=== PATIENT | male | born 1940 | race Two or more races ===

== ENCOUNTER 2017-03-10 08:49 | Outpatient (CLI) | payer OTHER ==
[~2017-03-10 08:49] MED LIST: GLIMEPIRIDE4 MG; GLUCOPHAGE XR500 MG; METFORMIN HCL1000 MG
== END 2017-03-10 08:56 | disposition home or self-care (01) ==
LOC: LAB 08:49
DX: D64.89 Other specified anemias (principal); E55.9 Vitamin D deficiency, unspecified; E11.42 Type 2 diabetes mellitus with diabetic polyneuropathy; E78.2 Mixed hyperlipidemia; E11.21 Type 2 diabetes mellitus with diabetic nephropathy; E03.8 Other specified hypothyroidism

== ENCOUNTER 2017-08-15 10:27 | Outpatient (CLI) | payer OTHER | END 2017-08-15 10:34 | disposition home or self-care (01) | LOC: RAD 10:27 | DX: M77.32 Calcaneal spur, left foot (principal) ==

== ENCOUNTER → 2017-08-28 | Outpatient (CLI) | payer OTHER | END | disposition home or self-care (01) | LOC: NUCLEAR 10:00 | DX: M77.32 Calcaneal spur, left foot (principal); M81.0 Age-related osteoporosis without current pathological fracture ==

== ENCOUNTER 2018-02-10 08:12 | Outpatient (CLI) | payer OTHER | END 2018-02-10 15:00 | disposition home or self-care (01) | LOC: LAB 08:12 | DX: E11.22 Type 2 diabetes mellitus with diabetic chronic kidney disease (principal); N18.3 Chronic kidney disease, stage 3 (moderate); R80.9 Proteinuria, unspecified; E21.2 Other hyperparathyroidism ==

== ENCOUNTER 2018-02-10 10:02 | Outpatient (CLI) | payer OTHER | END 2018-02-10 10:05 | disposition home or self-care (01) | LOC: SONOGRAMA 10:02 | DX: N18.9 Chronic kidney disease, unspecified (principal); E11.9 Type 2 diabetes mellitus without complications; Z85.46 Personal history of malignant neoplasm of prostate ==

== ENCOUNTER 2018-04-30 09:52 | Outpatient (CLI) | payer OTHER | END 2018-04-30 11:58 | disposition HB | LOC: LAB 09:52 | DX: E11.22 Type 2 diabetes mellitus with diabetic chronic kidney disease (principal); N18.3 Chronic kidney disease, stage 3 (moderate); I10 Essential (primary) hypertension; N39.0 Urinary tract infection, site not specified ==

== ENCOUNTER 2020-02-16 09:56 | Outpatient (CLI) | payer OTHER | END 2020-02-16 10:07 | disposition HB | LOC: RAD 09:56 | DX: I77.89 Other specified disorders of arteries and arterioles (principal) ==

== ENCOUNTER 2023-09-29 10:14 | Outpatient (CLI) | payer OTHER | END 2023-09-29 10:22 | disposition home or self-care (01) | LOC: RAD 10:14 | DX: I12.9 Hypertensive chronic kidney disease with stage 1 through stage 4 chronic kidney disease, or unspecified chronic kidney disease (principal) ==

== ENCOUNTER 2024-04-15 09:12 | Inpatient (IN) | payer OTHER ==
[~2024-04-15] VITALS: Ht 264.2 cm; Wt 72.6 kg
[2024-04-15] MEDS ORDERED: DEXTROSE 5 % IN WATER 500 ML IV SCH (09:30)
[2024-04-15 10:19] LABS: PH,URINE 5.5 (5.0-8.0); URINE APPEARANCE Clear; URINE BILIRRUBIN Negative (NEGATIVE); URINE BLOOD Trace; URINE COLOR Yellow; URINE GLUCOSE Negative (NEGATIVE); URINE KETONE Negative (NEGATIVE); URINE LEUKOCYTE Negative; URINE NITRATE Negative; URINE UROBILINOGEN 0.2 E.U./dl
[2024-04-15 10:20] LABS: URINE BACTERIA 89.3 uL (0.0-1933); URINE EPITHELIAL CELLS 2.9 uL (0.0-38.8); URINE RBC 6.1 uL (0.0-20.8); URINE WBC 2.6 uL (0.0-23.2)
[2024-04-15 10:26] LABS: URINE CAST 0.29 uL (0.0-1.40); URINE PROTEIN 100 (NEGATIVE)
[2024-04-15 11:08] LABS: HEMATOCRIT 34.3 % (39.0-48.0); HEMOGLOBIN 10.8 g/dL (13-16.00); MEAN CELL VOLUME 72.9 fL (80.0-100.00); MEAN CORPUSCULAR HEMOGLOBIN 22.9 pg (27.00-32.0); MEAN CORPUSCULAR HGB CONC 31.4 g/dl (32.0-36.0); PLATELET COUNT 265 K/uL (150-450); RED BLOOD COUNT 4.71 M/uL (4.00-6.00); RED CELL DISTRIBUTION WIDTH 16.9 % (11.5-14.5)
[2024-04-15 11:20] LABS: CALCIUM 9.5 mg/dL (8.5-10.1); CREATININE SERUM 1.5 mg/dL (0.70-1.30); GFR 44.69; POTASSIUM 4.43 mEq/L (3.5-5.1)
[2024-04-15] MEDS ORDERED: DEXTROSE 50 % IN WATER 0.5 G/ML DISP.SYRIN IV ONE (14:10)
[2024-04-15] MEDS ORDERED: 0.9 % SODIUM CHLORIDE 1,000 ML IV SCH (18:45)
[2024-04-15] MEDS ORDERED: ATORVASTATIN CALCIUM 40 MG TABLET PO SCH (18:47)
[2024-04-15] MEDS ORDERED: CEFTRIAXONE SODIUM 2,000 MG in 0.9 % SODIUM CHLORIDE 100 ML IV SCH (18:47)
[2024-04-15] MEDS ORDERED: ASPIRIN 81 MG TAB.CHEW PO SCH (18:47)
[2024-04-15] MEDS ORDERED: GABAPENTIN 600 MG TABLET PO SCH (18:48)
[2024-04-15] MEDS ORDERED: DEXTROSE 50 % IN WATER 0.5 G/ML DISP.SYRIN IV PRN (19:00)
[2024-04-15] MEDS ORDERED: INSULIN LISPRO 1,000 UNIT/10 ML UNITS SUBCUTANEO PRN (19:00)
[2024-04-15] MEDS ORDERED: CEFTRIAXONE SODIUM 2,000 MG VIAL ONE (19:25)
[2024-04-15 20:28] LABS: INR 0.94; PARTIAL THROMBOPLASTIN TIME 24.7 SECONDS (22.0-34.0); PROTHROMBIN TIME 10.3 SECONDS (9.0-11.5)
[2024-04-15 21:51] LABS: PH,URINE 6.5 (5.0-8.0); URINE APPEARANCE Clear; URINE BILIRRUBIN Negative (NEGATIVE); URINE BLOOD Small; URINE COLOR Yellow; URINE GLUCOSE Negative (NEGATIVE); URINE KETONE Negative (NEGATIVE); URINE LEUKOCYTE Negative; URINE NITRATE Negative; URINE RBC 7.5 uL (0.0-20.8)
[2024-04-15 22:00] LABS: URINE EPITHELIAL CELLS 0.1 uL (0.0-38.8); URINE PROTEIN 100 (NEGATIVE); URINE WBC 0.3 uL (0.0-23.2)
[2024-04-15 23:59] VITALS: BP 160/70; O2SAT 100
[2024-04-16] VITALS (7 sets, daily range): BP systolic 150–195; BP diastolic 70–90; O2SAT 19–100
[2024-04-16] MEDS ORDERED: DEXAMETHASONE SODIUM PHOSPHATE 4 MG/ML VIAL IV SCH
[2024-04-16] MEDS ORDERED: INSULIN LISPRO 1,000 UNIT/10 ML UNITS SUBCUTANEO ONE (04:02)
[2024-04-16] MEDS ORDERED: INSULIN LISPRO 1,000 UNIT/10 ML UNITS SUBCUTANEO PRN (08:00)
[2024-04-16] MEDS ORDERED: LOSARTAN POTASSIUM 100 MG TABLET PO SCH (09:00)
[2024-04-16] MEDS ORDERED: FAMOTIDINE/PF 20 MG in 0.9 % SODIUM CHLORIDE 8 ML IV PUSH SCH (09:00)
[2024-04-16] MEDS ORDERED: hydrALAZINE HCL 25 MG TABLET PO SCH (14:46)
[2024-04-16 15:32] LABS: ALBUMIN 3.1 gm/dL (3.4-5.0); BILIRUBIN TOTAL 0.3 mg/dL (0.3-1.2); CALCIUM 9.2 mg/dL (8.5-10.1); CREATININE SERUM 1.5 mg/dL (0.70-1.30); GFR 44.69; GLOBULINA 3.8 G/DL (2.4-3.5); POTASSIUM 5.27 mEq/L (3.5-5.1); TOTAL PROTEIN 6.9 gm/dL (6.4-8.2)
[2024-04-16] MEDS ORDERED: AMLODIPINE BESYLATE 5 MG TABLET PO SCH (17:00)
[2024-04-16] MEDS ORDERED: DEXAMETHASONE SODIUM PHOSPHATE 4 MG/ML VIAL IV STA (17:34)
[2024-04-17] VITALS (9 sets, daily range): BP systolic 160–179; BP diastolic 80–89; O2SAT 96–100
[2024-04-17] MEDS ORDERED: DEXAMETHASONE SODIUM PHOSPHATE 4 MG/ML VIAL IV SCH
[2024-04-17] MEDS ORDERED: hydrALAZINE HCL 50 MG TABLET PO SCH (13:00)
[2024-04-17] MEDS ORDERED: AMLODIPINE BESYLATE 10 MG TABLET PO SCH (17:00)
[2024-04-18] VITALS (9 sets, daily range): BP systolic 105–154; BP diastolic 56–66; O2SAT 94–98
[2024-04-18 05:39] LABS: HEMATOCRIT 28.7 % (39.0-48.0); HEMOGLOBIN 9.2 g/dL (13-16.00); MEAN CELL VOLUME 71.8 fL (80.0-100.00); PLATELET COUNT 283 K/uL (150-450); RED BLOOD COUNT 3.99 M/uL (4.00-6.00); RED CELL DISTRIBUTION WIDTH 16.4 % (11.5-14.5)
[2024-04-18 05:51] LABS: ERYTHROCYTE SEDIMENTATION RATE 77 mm/hr
[2024-04-18 06:06] LABS: ALBUMIN 2.8 gm/dL (3.4-5.0); BILIRUBIN TOTAL 0.18 mg/dL (0.3-1.2); CALCIUM 8.7 mg/dL (8.5-10.1); CREATININE SERUM 1.66 mg/dL (0.70-1.30); GFR 39.76; GLOBULINA 3.3 G/DL (2.4-3.5); MAGNESIUM 1.9 mg/dL (1.8-2.4); PHOSPHOROUS 2.9 mg/dL (2.5-4.9); POTASSIUM 4.43 mEq/L (3.5-5.1); TOTAL PROTEIN 6.1 gm/dL (6.4-8.2)
[2024-04-18 06:15] LABS: C-REACTIVE PROTEIN 1.68 MG/DL (0.00-0.29); TSH 0.325 uIU/mL (0.358-3.74)
[2024-04-18] MEDS ORDERED: INSULIN LISPRO 1,000 UNIT/10 ML UNITS SUBCUTANEO SCH (08:00)
[2024-04-18] MEDS ORDERED: INSULIN GLARGINE,HUM.REC.ANLOG 1,000 UNITS/10 ML UNITS SUBCUTANEO SCH (09:00)
[2024-04-18] MEDS ORDERED: MEPERIDINE HCL 25 MG/ML AMPUL IM PRN (17:30)
[2024-04-18] MEDS ORDERED: SOD FERRIC GLUC COMPLX/SUCROSE 62.5 MG in 0.9 % SODIUM CHLORIDE 50 ML IV SCH (20:16)
[2024-04-18] MEDS ORDERED: Cyanocobalamin/Mecobalamin 1 TAB.SL SL SCH (20:17)
[2024-04-18] MEDS ORDERED: Cyanocobalamin/Mecobalamin 1 TAB.SL SL ONE (20:50)
[2024-04-18] MEDS ORDERED: SOD FERRIC GLUC COMPLX/SUCROSE 62.5 MG/5 ML AMPUL IV ONE (20:50)
[2024-04-19] VITALS (7 sets, daily range): BP systolic 104–123; BP diastolic 46–56; O2SAT 93–96
[2024-04-20 01:36] VITALS: BP 119/53
[2024-04-20 05:00] LABS: ERYTHROCYTE SEDIMENTATION RATE 46 mm/hr
[2024-04-20 05:13] LABS: HEMATOCRIT 24.4 % (39.0-48.0); MEAN CELL VOLUME 72.4 fL (80.0-100.00); MEAN CORPUSCULAR HGB CONC 32.7 g/dl (32.0-36.0); PLATELET COUNT 240 K/uL (150-450); RED BLOOD COUNT 3.38 M/uL (4.00-6.00); RED CELL DISTRIBUTION WIDTH 16.6 % (11.5-14.5)
[2024-04-20 05:16] LABS: MEAN CORPUSCULAR HEMOGLOBIN 23.6 pg (27.00-32.0)
[2024-04-20 05:28] LABS: CALCIUM 8.1 mg/dL (8.5-10.1); CREATININE SERUM 1.78 mg/dL (0.70-1.30); GFR 36.68; PHOSPHOROUS 2.3 mg/dL (2.5-4.9); POTASSIUM 4.02 mEq/L (3.5-5.1)
[2024-04-20 05:30] LABS: C-REACTIVE PROTEIN 1.31 MG/DL (0.00-0.29)
[2024-04-20 08:36] VITALS: BP 109/47
[2024-04-20 10:31] VITALS: BP 124/50
[2024-04-20] MEDS ORDERED: PANTOPRAZOLE SODIUM 40 MG/VIAL VIAL IV NR (13:00)
[2024-04-20] MEDS ORDERED: FUROsemide 20 MG/2 ML VIAL IV SCH (14:30)
[2024-04-20 16:00] VITALS: BP 137/68; O2SAT 98
[2024-04-20] MEDS ORDERED: LACTOBACILLUS ACIDOPHILUS 1 CAP CAP PO SCH (17:00)
[2024-04-20 18:03] LABS: ob NEGATIVE (NEGATIVE)
[2024-04-20] MEDS ORDERED: FAMOTIDINE/PF 20 MG in 0.9 % SODIUM CHLORIDE 8 ML IV PUSH SCH (21:00)
[2024-04-21 00:29] VITALS: BP 147/68
[2024-04-21 08:46] VITALS: BP 141/65; O2SAT 96
[2024-04-21] MEDS ORDERED: PANTOPRAZOLE SODIUM 40 MG/VIAL VIAL IV SCH (09:00)
[2024-04-21] MEDS ORDERED: SOD FERRIC GLUC COMPLX/SUCROSE 62.5 MG/5 ML AMPUL IV ONE (09:07)
[2024-04-21] MEDS ORDERED: CEFTRIAXONE SODIUM 2,000 MG VIAL ONE (09:07)
[2024-04-21 09:43] LABS: HEMATOCRIT 32.7 % (39.0-48.0); HEMOGLOBIN 10.8 g/dL (13-16.00); MEAN CORPUSCULAR HGB CONC 32.9 g/dl (32.0-36.0); PLATELET COUNT 283 K/uL (150-450); RED BLOOD COUNT 4.48 M/uL (4.00-6.00); RED CELL DISTRIBUTION WIDTH 17.4 % (11.5-14.5)
[2024-04-21 10:16] LABS: CALCIUM 9.1 mg/dL (8.5-10.1); CREATININE SERUM 1.33 mg/dL (0.70-1.30); GFR 51.35; POTASSIUM 4.57 mEq/L (3.5-5.1)
[2024-04-21] MEDS ORDERED: FUROsemide 20 MG/2 ML VIAL IV SCH (14:30)
[2024-04-21 17:37] VITALS: BP 160/76; O2SAT 95
[2024-04-21 18:57] LABS: HEMATOCRIT 37.3 % (39.0-48.0); HEMOGLOBIN 12.5 g/dL (13-16.00); MEAN CELL VOLUME 73.6 fL (80.0-100.00); MEAN CORPUSCULAR HEMOGLOBIN 24.7 pg (27.00-32.0); MEAN CORPUSCULAR HGB CONC 33.5 g/dl (32.0-36.0); PLATELET COUNT 279 K/uL (150-450); RED BLOOD COUNT 5.07 M/uL (4.00-6.00); RED CELL DISTRIBUTION WIDTH 17.1 % (11.5-14.5)
[2024-04-21 19:25] LABS: FERRITIN 437.3 NG/ML (26-388)
[2024-04-21 21:34] VITALS: BP 158/74
[2024-04-22] VITALS (7 sets, daily range): BP systolic 131–152; BP diastolic 63–70; O2SAT 94–96
[2024-04-22] MEDS ORDERED: CEFTRIAXONE SODIUM 2,000 MG VIAL ONE (08:56)
[2024-04-22] MEDS ORDERED: SOD FERRIC GLUC COMPLX/SUCROSE 62.5 MG/5 ML AMPUL IV ONE (08:56)
[2024-04-22 10:39] LABS: FOLIC ACID 15.98 ng/ml (4.78-20)
[2024-04-22] MEDS ORDERED: FAMOtidine 20 MG TABLET PO SCH (21:00)
[2024-04-23] VITALS (9 sets, daily range): BP systolic 143–156; BP diastolic 67–69; O2SAT 92–97
[2024-04-23] MEDS ORDERED: INSULIN NPH HUM/REG INSULIN HM 1,000 UNIT/10 ML UNITS SUBCUTANEO SCH (08:00)
[2024-04-23] MEDS ORDERED: Neurin-Sl Tablet Sl SL (14:36)
[2024-04-23] MEDS ORDERED: LOSARTAN POTAS100 MG PO (14:36)
[2024-04-23] MEDS ORDERED: ADULT ASPIRIN81 MG PO (14:36)
[2024-04-23] MEDS ORDERED: NEURONTIN600 MG PO (14:36)
[2024-04-23] MEDS ORDERED: AMLODIPINE BESY10 MG PO (14:36)
[2024-04-23] MEDS ORDERED: PROTONIX40 MG PO (14:36)
[2024-04-23] MEDS ORDERED: INTEGRA PLUS C1 EACH PO (14:36)
[2024-04-23] MEDS ORDERED: FAMOTIDINE20 MG PO (14:36)
[2024-04-23] MEDS ORDERED: LIPITOR40 M1 PO (14:36)
[2024-04-23] MEDS ORDERED: HYDRALAZINE HCL50 MG PO (14:36)
[2024-04-23 16:05] LABS: hgb a2 4.5 % (1.8-3.2); hgb f 0.5 % (0.0-2.0); hgb s 0 % (0.0)
[2024-04-24] VITALS (8 sets, daily range): BP systolic 149–163; BP diastolic 61–66; O2SAT 95–99
[2024-04-25] VITALS (10 sets, daily range): BP systolic 130–159; BP diastolic 60–70; O2SAT 75–97
[2024-04-25 18:04] LABS: g6pd quant 293 (127-427); rbc 5.08 x10E6/uL (4.14-5.80)
[2024-04-26] VITALS (8 sets, daily range): BP systolic 136–145; BP diastolic 64–66; O2SAT 93–97
[2024-04-27] VITALS (9 sets, daily range): BP systolic 120–141; BP diastolic 62–67; O2SAT 89–97
[2024-04-28] VITALS (9 sets, daily range): BP systolic 114–147; BP diastolic 58–64; O2SAT 90–99
[2024-04-28] MEDS ORDERED: VITAMIN B COMPLEX 1 EACH PO SCH (17:00)
[2024-04-28] MEDS ORDERED: SOD FERRIC GLUC COMPLX/SUCROSE 62.5 MG/5 ML AMPUL IV SCH (17:00)
[2024-04-29] VITALS (9 sets, daily range): BP systolic 119–147; BP diastolic 50–63; O2SAT 90–98
[2024-04-29] MEDS ORDERED: INSULIN LISPRO 1,000 UNIT/10 ML UNITS SUBCUTANEO SCH (08:00)
[2024-04-29] MEDS ORDERED: INSULIN GLARGINE,HUM.REC.ANLOG 1,000 UNITS/10 ML UNITS SUBCUTANEO SCH (09:00)
[2024-04-30] VITALS (9 sets, daily range): BP systolic 132–155; BP diastolic 63–69; O2SAT 90–97
[2024-05-01] VITALS (9 sets, daily range): BP systolic 139–147; BP diastolic 56–68; O2SAT 90–99
[2024-05-01] MEDS ORDERED: INSULIN LISPRO 1,000 UNIT/10 ML UNITS SUBCUTANEO PRN (23:45)
[2024-05-02] VITALS (9 sets, daily range): BP systolic 131–139; BP diastolic 56–64; O2SAT 90–97
[2024-05-03 00:58] VITALS: O2SAT 90
[2024-05-03 01:27] VITALS: BP 132/65; O2SAT 91
[2024-05-03 05:38] VITALS: O2SAT 90
[2024-05-03 08:22] VITALS: BP 148/62; O2SAT 91
[2024-05-03 09:17] VITALS: O2SAT 90
[2024-05-03 13:16] VITALS: O2SAT 95
== END 2024-05-03 14:46 | disposition home or self-care (01) | DRG 52 ==
LOC: ER 09:12 → SEC-K 21:16 → MEDI 21:16 → MEDJ 21:16 → SEC-K 22:03 → MEDI 04-16 16:09
PROVIDERS: Emergency Medicine; General Practice; Internal Medicine; Internal Medicine Endocrinology, Diabetes & Metabolism; Internal Medicine Geriatric Medicine; Internal Medicine Hematology & Oncology; ADMIT Internal Medicine; ATTEND Internal Medicine
PROC: BW28ZZZ Computerized Tomography (CT Scan) of Head (ICD-10-PCS; principal; 2024-04-15)
PROC: B24BZZZ Ultrasonography of Heart with Aorta (ICD-10-PCS; 2024-04-15)
PROC: BR30ZZZ Magnetic Resonance Imaging (MRI) of Cervical Spine (ICD-10-PCS; 2024-04-16)
PROC: B345ZZZ Ultrasonography of Bilateral Common Carotid Arteries (ICD-10-PCS; 2024-04-16)
PROC: 4A12X4Z Monitoring of Cardiac Electrical Activity, External Approach (ICD-10-PCS; 2024-04-16)
PROC: 30233N1 Transfusion of Nonautologous Red Blood Cells into Peripheral Vein, Percutaneous Approach (ICD-10-PCS; 2024-04-21)
DX: S14.0XXA Concussion and edema of cervical spinal cord, initial encounter (principal); G45.8 Other transient cerebral ischemic attacks and related syndromes; G95.89 Other specified diseases of spinal cord; N17.9 Acute kidney failure, unspecified; N18.4 Chronic kidney disease, stage 4 (severe); N39.0 Urinary tract infection, site not specified; R55 Syncope and collapse; E86.0 Dehydration; D64.9 Anemia, unspecified; D50.8 Other iron deficiency anemias; D53.0 Protein deficiency anemia; E11.649 Type 2 diabetes mellitus with hypoglycemia without coma; Z79.84 Long term (current) use of oral hypoglycemic drugs; E78.5 Hyperlipidemia, unspecified; I12.9 Hypertensive chronic kidney disease with stage 1 through stage 4 chronic kidney disease, or unspecified chronic kidney disease; E11.22 Type 2 diabetes mellitus with diabetic chronic kidney disease; B95.2 Enterococcus as the cause of diseases classified elsewhere; E11.65 Type 2 diabetes mellitus with hyperglycemia; Z79.4 Long term (current) use of insulin; W13.3XXA Fall through floor, initial encounter; Y93.9 Activity, unspecified; Y92.009 Unspecified place in unspecified non-institutional (private) residence as the place of occurrence of the external cause
CPT/HCPCS: 72141

== ENCOUNTER 2024-07-09 14:26 | Inpatient (IN) | payer OTHER ==
[~2024-07-09] VITALS: Ht 152.4 cm; Wt 62.1 kg
[~2024-07-09 14:26] MED LIST changes: +ADULT ASPIRIN81 MG PO; +AMLODIPINE BESY10 MG PO; +FAMOTIDINE20 MG PO; +HYDRALAZINE HCL50 MG PO; +INTEGRA PLUS C1 EACH PO; +LIPITOR40 M1 PO; +LOSARTAN POTAS100 MG PO; +NEURONTIN600 MG PO; +Neurin-Sl Tablet Sl SL; +PROTONIX40 MG PO
[2024-07-09] MEDS ORDERED: LOSARTAN POTAS100 MG PO (14:40)
[2024-07-09] MEDS ORDERED: ATORVASTATIN CA40 MG PO (14:40)
[2024-07-09] MEDS ORDERED: GRALISE600 MG PO (14:40)
[2024-07-09] MEDS ORDERED: ZETIA10 MG PO (14:41)
[2024-07-09] MEDS ORDERED: NORVASC5 MG PO (14:41)
[2024-07-09] MEDS ORDERED: JANUMET XR 50-1 EAC1 PO (14:42)
[2024-07-09] MEDS ORDERED: GLIMEPIRIDE4 MG PO (14:42)
--- NOTE | 2024-07-09 14:42 | NUR ---
SE RECIBE MASCULINO ALERTA Y ORIENTADO X3 EN AMBULANCIA POR ULCERA EN PRIMER DEDO DEL PIE MARLENE. SE MIDEN S/V Y SE UBICA.
[2024-07-09] MEDS ORDERED: 0.9 % SODIUM CHLORIDE 500 ML IV ONE (16:30)
[2024-07-09] MEDS ORDERED: VANCOMYCIN HCL 1,000 MG VIAL IV ONE (16:30)
[2024-07-09] MEDS ORDERED: VANCOMYCIN HCL 1,000 MG VIAL ONE (16:38)
--- NOTE | 2024-07-09 17:00 | NUR ---
DANN.CANCEL ORIENTA A PTE SOBRE TX MEDICO ORDENADO POR LAURIE. REALIZA CHAD DE MUESTRAS DE LAB TIFFANIE ORDEN MEDICA Y BAJO MEDIDAS ASEPTICAS. VENOPUNCION PATENTE WILLARD DE EDEMA Y ERITEMA BAJANDO IV FLUIDS POR IV PUMP. REALIZA EKG Y PRESENTA. PTE PENDIENTE A ESTUDIO, SE NOTIFICA.
[2024-07-09 17:38] LABS: BASO % 0.3 % (0.1-1.2); EOS # 0.03 (0.04-0.54); EOS % 0.3 % (0.7-7.0); HEMATOCRIT 30.6 % (40.1-51.0); HEMOGLOBIN 9.6 g/dL (13.7-17.5); LYMPH # 2.37 (1.18-3.74); LYMPH % 22.1 % (19.3-53.1); MEAN CORPUSCULAR HEMOGLOBIN 23.2 pg (25.6-32.2); MONO # 0.82 (0.24-0.82); MONO % 7.7 % (4.7-12.5); NEUT # 7.38 (1.56-6.13); NEUT % 68.9 % (34.0-71.1); PLATELET COUNT 306 K/uL (163-369); RED BLOOD COUNT 4.13 M/uL (4.63-6.08); RED CELL DISTRIBUTION WIDTH 17.8 % (11.6-14.4)
[2024-07-09 17:43] LABS: ERYTHROCYTE SEDIMENTATION RATE 75 mm/hr (0-20)
[2024-07-09 17:57] LABS: ALBUMIN 3.7 gm/dL (3.4-5.0); ALKALINE PHOSPHATASE 110 U/L (50-136); ALT/SGPT 15 U/L (12-78); ANION GAP 6 (10.0-20.0); AST/SGOT 18 U/L (15-37); BILIRUBIN TOTAL 0.58 mg/dL (0.3-1.2); BLOOD UREA NITROGEN 27 mg/dL (7-18); BUN CREA RATIO 16 (7.0-25.0); CALCIUM 9.4 mg/dL (8.5-10.1); CARBON DIOXIDE 32 mEq/L (21-32); CHLORIDE 108 mmol/L (98-107); CREATININE SERUM 1.68 mg/dL (0.70-1.30); GFR 39.22; GLOBULINA 4.2 G/DL (2.4-3.5); GLUCOSE FASTING 96 mg/dL (65-100); OSMOLALITY SERUM 286 MOSM/KG (275-295); POTASSIUM 5.09 mEq/L (3.5-5.1); SODIUM 141 mmol/L (136-145); TOTAL PROTEIN 7.9 gm/dL (6.4-8.2)
[2024-07-09 17:58] LABS: C-REACTIVE PROTEIN < 0.29 MG/DL (0.00-0.29)
[2024-07-09 19:36] LABS: INR 0.94; PARTIAL THROMBOPLASTIN TIME 24.8 SECONDS (22.0-34.0); PROTHROMBIN TIME 10.3 SECONDS (9.0-11.5)
[2024-07-09 19:53] LABS: PH,URINE 7.5 (5.0-8.0); URINE APPEARANCE Clear; URINE BILIRRUBIN Negative (NEGATIVE); URINE BLOOD Negative; URINE COLOR Yellow; URINE GLUCOSE Negative (NEGATIVE); URINE KETONE Negative (NEGATIVE); URINE LEUKOCYTE Negative; URINE NITRATE Negative
[2024-07-09 19:57] LABS: URINE BACTERIA 8.5 uL (0.0-1933); URINE RBC 15.6 uL (0.0-20.8)
[2024-07-09 20:27] LABS: URINE CAST 0.73 uL (0.0-1.40); URINE PROTEIN 100 (NEGATIVE); URINE WBC 1.4 uL (0.0-23.2)
[2024-07-09] MEDS ORDERED: 0.9 % SODIUM CHLORIDE 1,000 ML IV SCH (23:30)
[2024-07-09] MEDS ORDERED: DEXTROSE 50 % IN WATER 0.5 G/ML DISP.SYRIN IV PRN (23:30)
[2024-07-09] MEDS ORDERED: INSULIN LISPRO 1,000 UNIT/10 ML UNITS SUBCUTANEO PRN ×2 (23:30)
[2024-07-09] MEDS ORDERED: ACETAMINOPHEN 500 MG GEL..CAP PO PRN (23:30)
[2024-07-10] MEDS ORDERED: PIPERACILLIN/TAZOBACTAM SODIUM 2.25 GM in DEXTROSE 5 % IN WATER 50 ML IV SCH
[2024-07-10 04:00] VITALS: BP 155/66; O2SAT 95
[2024-07-10 08:00] VITALS: BP 157/71; O2SAT 96
[2024-07-10] MEDS ORDERED: GABAPENTIN 600 MG TABLET PO SCH (09:00)
[2024-07-10] MEDS ORDERED: AMLODIPINE BESYLATE 5 MG TABLET PO SCH (09:00)
[2024-07-10] MEDS ORDERED: ATORVASTATIN CALCIUM 40 MG TABLET PO SCH (09:00)
[2024-07-10] MEDS ORDERED: FAMOTIDINE/PF 20 MG in 0.9 % SODIUM CHLORIDE 8 ML IV PUSH SCH (09:00)
[2024-07-10] MEDS ORDERED: DEXTROSE 50 % IN WATER 0.5 G/ML VIAL IV PRN (12:30)
[2024-07-10 17:43] VITALS: BP 156/85
[2024-07-11 01:48] VITALS: BP 126/68
[2024-07-11] MEDS ORDERED: INSULIN LISPRO 1,000 UNIT/10 ML UNITS SUBCUTANEO PRN (06:30)
[2024-07-11 08:22] LABS: ALBUMIN 2.9 gm/dL (3.4-5.0); BILIRUBIN TOTAL 0.45 mg/dL (0.3-1.2); CALCIUM 8.5 mg/dL (8.5-10.1); CREATININE SERUM 1.6 mg/dL (0.70-1.30); GFR 41.49; GLOBULINA 3.4 G/DL (2.4-3.5); POTASSIUM 4.4 mEq/L (3.5-5.1); TOTAL PROTEIN 6.3 gm/dL (6.4-8.2)
[2024-07-11 10:00] VITALS: BP 156/72; BP 163/75; O2SAT 100; O2SAT 99
[2024-07-11 17:26] VITALS: BP 122/72
[2024-07-11 17:35] VITALS: BP 148/70
[2024-07-12 01:19] VITALS: BP 159/74
[2024-07-12] MEDS ORDERED: SODIUM HYPOCHLORITE 1OZ TOP SCH (09:35)
[2024-07-12 09:47] VITALS: BP 157/78
[2024-07-12 15:30] VITALS: BP 141/72; O2SAT 98
[2024-07-13 01:46] VITALS: BP 122/54; O2SAT 95
[2024-07-13] MEDS ORDERED: FAMOtidine 20 MG TABLET PO SCH (09:00)
[2024-07-13 09:57] VITALS: BP 155/74; O2SAT 98
[2024-07-13] MEDS ORDERED: INSULIN NPH HUM/REG INSULIN HM 1,000 UNIT/10 ML UNITS SUBCUTANEO SCH (17:00)
[2024-07-13 17:48] VITALS: BP 150/70; O2SAT 100
[2024-07-14 00:44] VITALS: BP 174/69; O2SAT 96
[2024-07-14] MEDS ORDERED: PIPERACILLIN/TAZOBACTAM SODIUM 2.25 GM VIAL IV ONE (08:33)
[2024-07-14 10:06] VITALS: BP 179/81; O2SAT 98
[2024-07-15 00:55] VITALS: BP 133/71; O2SAT 93
[2024-07-15 08:16] VITALS: BP 126/57; O2SAT 98
[2024-07-15 13:49] LABS: BASO % 0.2 % (0.1-1.2); EOS # 0.09 (0.04-0.54); EOS % 0.7 % (0.7-7.0); HEMATOCRIT 30.1 % (40.1-51.0); HEMOGLOBIN 9.1 g/dL (13.7-17.5); LYMPH % 21.1 % (19.3-53.1); MEAN CORPUSCULAR HEMOGLOBIN 22.7 pg (25.6-32.2); MONO # 1.26 (0.24-0.82); MONO % 9.8 % (4.7-12.5); NEUT # 8.63 (1.56-6.13); NEUT % 67.5 % (34.0-71.1); PLATELET COUNT 299 K/uL (163-369); RED BLOOD COUNT 4.01 M/uL (4.63-6.08); RED CELL DISTRIBUTION WIDTH 17.9 % (11.6-14.4)
[2024-07-15 13:53] LABS: ERYTHROCYTE SEDIMENTATION RATE 75 mm/hr (0-20)
[2024-07-15 14:45] LABS: ALBUMIN 3.3 gm/dL (3.4-5.0); BILIRUBIN TOTAL 0.37 mg/dL (0.3-1.2); CALCIUM 9.3 mg/dL (8.5-10.1); CREATININE SERUM 1.61 mg/dL (0.70-1.30); GFR 41.19; GLOBULINA 4.1 G/DL (2.4-3.5); POTASSIUM 5.69 mEq/L (3.5-5.1); TOTAL PROTEIN 7.4 gm/dL (6.4-8.2)
[2024-07-15 14:57] LABS: C-REACTIVE PROTEIN 0.68 MG/DL (0.00-0.29)
[2024-07-15 17:57] VITALS: BP 140/80; O2SAT 98
[2024-07-15] MEDS ORDERED: SODIUM POLYSTYRENE SULFONATE 30G/8 TSP PO SCH (20:00)
[2024-07-16] VITALS: BP 158/75; O2SAT 96
[2024-07-16 07:28] LABS: ALBUMIN 2.4 gm/dL (3.4-5.0); BILIRUBIN TOTAL 0.27 mg/dL (0.3-1.2); CALCIUM 7.6 mg/dL (8.5-10.1); CREATININE SERUM 1.52 mg/dL (0.70-1.30); GFR 44.02; POTASSIUM 4.62 mEq/L (3.5-5.1); TOTAL PROTEIN 5.4 gm/dL (6.4-8.2)
[2024-07-16 08:40] VITALS: BP 112/59; O2SAT 96
[2024-07-16] MEDS ORDERED: SODIUM POLYSTYRENE SULFONATE 30G/8 TSP PO SCH (09:00)
[2024-07-16 16:39] VITALS: BP 153/65
[2024-07-17] MEDS ORDERED: INSULIN NPH HUM/REG INSULIN HM 1,000 UNIT/10 ML UNITS SUBCUTANEO SCH (08:00)
== END 2024-07-16 20:25 | disposition home or self-care (01) | DRG 540 ==
LOC: ER 14:26 → MEDI 07-10 01:34
PROVIDERS: General Practice; Internal Medicine; Student in an Organized Health Care Education/Training Program; ADMIT Internal Medicine; ATTEND Internal Medicine
PROC: BT4JZZZ Ultrasonography of Kidneys and Bladder (ICD-10-PCS; principal; 2024-07-09)
PROC: B54DZZZ Ultrasonography of Bilateral Lower Extremity Veins (ICD-10-PCS; 2024-07-09)
PROC: B44HZZZ Ultrasonography of Bilateral Lower Extremity Arteries (ICD-10-PCS; 2024-07-09)
PROC: 02HV33Z Insertion of Infusion Device into Superior Vena Cava, Percutaneous Approach (ICD-10-PCS; 2024-07-16)
DX: M86.8X7 Other osteomyelitis, ankle and foot (principal); L97.528 Non-pressure chronic ulcer of other part of left foot with other specified severity; N17.8 Other acute kidney failure; B95.61 Methicillin susceptible Staphylococcus aureus infection as the cause of diseases classified elsewhere; E11.621 Type 2 diabetes mellitus with foot ulcer; Z79.4 Long term (current) use of insulin; E11.22 Type 2 diabetes mellitus with diabetic chronic kidney disease; I12.9 Hypertensive chronic kidney disease with stage 1 through stage 4 chronic kidney disease, or unspecified chronic kidney disease; N18.9 Chronic kidney disease, unspecified

== ENCOUNTER 2024-10-06 10:44 | Inpatient (IN) | payer OTHER ==
[~2024-10-06] VITALS: Ht 175.3 cm; Wt 63.5 kg
[~2024-10-06 10:44] MED LIST changes: +ATORVASTATIN CA40 MG PO; +GLIMEPIRIDE4 MG PO; +GRALISE600 MG PO; +JANUMET XR 50-1 EAC1 PO; +NORVASC5 MG PO; +ZETIA10 MG PO
--- NOTE | 2024-10-06 10:56 | NUR ---
SE RECIBE PACIENTE EN EMBULANCIA ALERTA Y ORIENTADO X3 EL MISMO REFIERE DIFIGULTAD RESPIRATORIA .S/V ESTABLE DENTRO BDE QUINTERO CONDICION. PACIENTE EN SIDRA CON BARANDAS ELEVADAS EN ESPERA DE EVALUACION MEDICA.
--- NOTE | 2024-10-06 12:16 | NUR ---
SE EDUCA SOBRE TX MEDICO, HARVEY REFIERE ENTENDER. SE EXTRAEN MUESTRAS DE LABORATORIO TIFFANIE ORDEN MEDICA. SE REALIZA EKG Y SE PRESENTA A MD.
[2024-10-06 12:27] LABS: BASO % 0.4 % (0.1-1.2); EOS # 0.00 (0.04-0.54); EOS % 0.0 % (0.7-7.0); LYMPH # 1.17 (1.18-3.74); LYMPH % 15.6 % (19.3-53.1); MEAN PLATELET VOLUME 11.60 fl (9.4-12.4); MONO # 0.95 (0.24-0.82); NEUT # 5.30 (1.56-6.13); NEUT % 70.9 % (34.0-71.1); RED CELL DISTRIBUTION WIDTH 17.1 % (11.6-14.4)
[2024-10-06 12:32] LABS: MONO % 12.7 % (4.7-12.5)
[2024-10-06 13:11] LABS: BUN CREA RATIO 22.0 (7.0-25.0); CREATININE SERUM 1.58 mg/dL (0.70-1.30); GFR 41.99; GLUCOSE FASTING 127.0 mg/dL (65-100); OSMOLALITY SERUM 296.0 MOSM/KG (275-295)
--- NOTE | 2024-10-06 17:15 | NUR ---
PTE ALERTA Y ORIENTADO X 3 ESFERAS EN SIDRA CON BARANDAS ELEVADAS.SIN FAMILIAR AL MOMENTO DE LA YUAN.AREA DE VENOPUNCION PATENTE Y WILLARD DE EDEMA.SE NOTIFICA CT PENDIENTE Y SE ENTREGA ENVASE PARA MUESTRA DE OCCULT BLOOD PENDIENTE.
[2024-10-06] MEDS ORDERED: ENOXAPARIN SODIUM 40 MG/0.4 ML SYRINGE SUBCUTANEO SCH (19:50)
[2024-10-06] MEDS ORDERED: ATORVASTATIN CALCIUM 40 MG TABLET PO SCH (19:52)
[2024-10-06] MEDS ORDERED: DEXTROSE 50 % IN WATER 0.5 G/ML VIAL IV PRN (20:00)
[2024-10-06] MEDS ORDERED: INSULIN LISPRO 1,000 UNIT/10 ML UNITS SUBCUTANEO PRN (20:00)
[2024-10-06] MEDS ORDERED: NITROGLYCERIN IN 5 % DEXTROSE 250 ML IV SCH (20:00)
[2024-10-06] MEDS ORDERED: PANTOPRAZOLE SODIUM 40 MG/VIAL VIAL IV SCH (20:25)
[2024-10-06] MEDS ORDERED: ENOXAPARIN SODIUM 40 MG/0.4 ML SYRINGE SUBCUTANEO ONE (21:57)
[2024-10-06 22:09] LABS: CHOL HDL RATIO 2.3 (0-5.0); HDL 62.0 mg/dl (40-60); LDL 58.0 mg/dl (0-130); VLDL 20.0 (0-39)
[2024-10-06 22:36] VITALS: BP 174/63; O2SAT 99
[2024-10-06 22:37] VITALS: BP 174/63
[2024-10-06] MEDS ORDERED: NITROGLYCERIN IN 5 % DEXTROSE 50 MG/250 ML BOTTLE IV ONE (22:44)
[2024-10-06 23:15] VITALS: BP 146/62; O2SAT 100
[2024-10-06 23:28] LABS: URINE APPEARANCE Clear; URINE BILIRRUBIN Negative (NEGATIVE); URINE BLOOD Large; URINE COLOR Yellow; URINE GLUCOSE Negative (NEGATIVE); URINE KETONE Trace (NEGATIVE); URINE LEUKOCYTE Negative; URINE NITRATE Negative; URINE UROBILINOGEN 0.2 E.U./dl
[2024-10-06 23:29] LABS: URINE BACTERIA 26.3 uL (0.0-1933); URINE CAST 1.75 uL (0.0-1.40); URINE EPITHELIAL CELLS 9.0 uL (0.0-38.8); URINE RBC 51.3 uL (0.0-20.8); URINE WBC 6.3 uL (0.0-23.2)
[2024-10-07] VITALS (7 sets, daily range): BP systolic 118–188; BP diastolic 56–82; O2SAT 96–99
[2024-10-07 00:20] LABS: URINE PROTEIN 300 (NEGATIVE)
[2024-10-07 00:40] LABS: ABG PH 7.409 (7.35-7.45); ABG PO2 70.8 mmHg (80-100); BICARBONATE 25.6 mmol/l (23-25)
[2024-10-07 00:41] LABS: o2 28 %
[2024-10-08] VITALS (10 sets, daily range): BP systolic 123–177; BP diastolic 64–80; O2SAT 96–100
[2024-10-08 13:23] LABS: BASO % 0.0 % (0.1-1.2); EOS # 0.00 (0.04-0.54); EOS % 0.0 % (0.7-7.0); LYMPH # 1.14 (1.18-3.74); LYMPH % 13.3 % (19.3-53.1); MEAN PLATELET VOLUME 11.70 fl (9.4-12.4); MONO # 0.42 (0.24-0.82); MONO % 4.9 % (4.7-12.5); NEUT # 6.94 (1.56-6.13); NEUT % 81.1 % (34.0-71.1); RED CELL DISTRIBUTION WIDTH 16.5 % (11.6-14.4)
[2024-10-08] MEDS ORDERED: NITROGLYCERIN IN 5 % DEXTROSE 250 ML IV SCH (13:45)
[2024-10-08 14:40] LABS: ALT/SGPT 38.0 U/L (12-78); AST/SGOT 62.0 U/L (15-37); BILIRUBIN TOTAL 0.58 mg/dL (0.3-1.2); BUN CREA RATIO 28.0 (7.0-25.0); CREATININE SERUM 1.9 mg/dL (0.70-1.30); GFR 33.94; GLOBULINA 3.6 G/DL (2.4-3.5); OSMOLALITY SERUM 299.0 MOSM/KG (275-295)
[2024-10-08 14:43] LABS: GLUCOSE FASTING 262.0 mg/dL (65-100)
[2024-10-09] VITALS (8 sets, daily range): BP systolic 141–157; BP diastolic 58–72; O2SAT 96–100
[2024-10-09 07:43] LABS: ALT/SGPT 37.0 U/L (12-78); AST/SGOT 55.0 U/L (15-37); BASO % 0.2 % (0.1-1.2); BILIRUBIN TOTAL 0.69 mg/dL (0.3-1.2); BUN CREA RATIO 29.0 (7.0-25.0); CREATININE SERUM 1.77 mg/dL (0.70-1.30); EOS # 0.00 (0.04-0.54); EOS % 0.0 % (0.7-7.0); GFR 36.83; GLOBULINA 4.0 G/DL (2.4-3.5); LYMPH # 1.13 (1.18-3.74); LYMPH % 13.6 % (19.3-53.1); MEAN PLATELET VOLUME 11.60 fl (9.4-12.4); MONO # 0.48 (0.24-0.82); MONO % 5.8 % (4.7-12.5); NEUT # 6.65 (1.56-6.13); NEUT % 79.8 % (34.0-71.1); OSMOLALITY SERUM 298.0 MOSM/KG (275-295); RED CELL DISTRIBUTION WIDTH 17.1 % (11.6-14.4)
[2024-10-09 07:47] LABS: GLUCOSE FASTING 221.0 mg/dL (65-100)
[2024-10-10] VITALS (8 sets, daily range): BP systolic 127–143; BP diastolic 66–76; O2SAT 97–100
[2024-10-11] VITALS (9 sets, daily range): BP systolic 128–180; BP diastolic 70–90; O2SAT 96–100
[2024-10-11] MEDS ORDERED: SOD FERRIC GLUC COMPLX/SUCROSE 62.5 MG in 0.9 % SODIUM CHLORIDE 50 ML IV SCH (12:00)
[2024-10-11] MEDS ORDERED: CARVEDILOL 3.125 MG TABLET PO NR (12:00)
[2024-10-11] MEDS ORDERED: Cyanocobalamin/Mecobalamin 1 TAB.SL SL NR (12:00)
[2024-10-11] MEDS ORDERED: SPIRONOLACTONE 25 MG TABLET PO SCH (13:00)
[2024-10-11] MEDS ORDERED: CARVEDILOL 3.125 MG TABLET PO SCH (21:00)
[2024-10-12] VITALS (11 sets, daily range): BP systolic 117–161; BP diastolic 55–73; O2SAT 97–99
[2024-10-12 06:19] LABS: BASO % 0.5 % (0.1-1.2); EOS # 0.04 (0.04-0.54); EOS % 0.5 % (0.7-7.0); LYMPH # 1.94 (1.18-3.74); LYMPH % 22.6 % (19.3-53.1); MEAN PLATELET VOLUME 12.10 fl (9.4-12.4); MONO # 0.96 (0.24-0.82); MONO % 11.2 % (4.7-12.5); NEUT # 5.44 (1.56-6.13); NEUT % 63.1 % (34.0-71.1); RED CELL DISTRIBUTION WIDTH 17.5 % (11.6-14.4)
[2024-10-12 06:39] LABS: ERYTHROCYTE SEDIMENTATION RATE 89 mm/hr (0-20)
[2024-10-12 06:49] LABS: ALT/SGPT 38.0 U/L (12-78); AST/SGOT 41.0 U/L (15-37); BILIRUBIN TOTAL 0.43 mg/dL (0.3-1.2); BUN CREA RATIO 34.0 (7.0-25.0); CREATININE SERUM 1.87 mg/dL (0.70-1.30); GFR 34.57; GLOBULINA 3.7 G/DL (2.4-3.5)
[2024-10-12 06:53] LABS: GLUCOSE FASTING 271.0 mg/dL (65-100); OSMOLALITY SERUM 296.0 MOSM/KG (275-295)
[2024-10-12] MEDS ORDERED: PANTOPRAZOLE SODIUM 40 MG TABLET.DR PO SCH (09:00)
[2024-10-12] MEDS ORDERED: Cyanocobalamin/Mecobalamin 1 TAB.SL SL SCH (09:00)
[2024-10-13 00:41] VITALS: O2SAT 96
[2024-10-13 02:46] VITALS: BP 100/50; O2SAT 95
[2024-10-13 08:46] VITALS: BP 134/80; O2SAT 97
[2024-10-13 10:10] VITALS: O2SAT 96
[2024-10-13 12:57] VITALS: O2SAT 98
[2024-10-13 13:36] LABS: ob NEGATIVE (NEGATIVE)
[2024-10-14] MEDS ORDERED: PANTOPRAZOLE SO40 MG PO (08:25)
[2024-10-14] MEDS ORDERED: LEVOFLOXACIN750 MG PO (08:25)
[2024-10-14] MEDS ORDERED: SPIRONOLACTONE25 MG PO (08:25)
[2024-10-14] MEDS ORDERED: LIPITOR40 M1 PO (08:25)
[2024-10-14] MEDS ORDERED: CARVEDILOL3.125 MG PO (08:25)
[2024-10-14] MEDS ORDERED: Neurin-Sl Tablet Sl SL (08:25)
== END 2024-10-13 16:49 | disposition home or self-care (01) | DRG 812 ==
LOC: ER 10:44 → SEC-K 20:04 → MEDI 20:04
PROVIDERS: General Practice; Internal Medicine; Internal Medicine Infectious Disease; ADMIT Internal Medicine; ATTEND Internal Medicine
PROC: BW21ZZZ Computerized Tomography (CT Scan) of Abdomen and Pelvis (ICD-10-PCS; principal; 2024-10-06)
PROC: B24BYZZ Ultrasonography of Heart with Aorta using Other Contrast (ICD-10-PCS; 2024-10-06)
PROC: 4A12X4Z Monitoring of Cardiac Electrical Activity, External Approach (ICD-10-PCS; 2024-10-07)
DX: D64.9 Anemia, unspecified (principal); I50.9 Heart failure, unspecified; N18.9 Chronic kidney disease, unspecified; I11.0 Hypertensive heart disease with heart failure; G62.9 Polyneuropathy, unspecified